=== PATIENT | male | born 2000 | race African-American/Black ===

== ENCOUNTER 2022-11-01 10:32 | Emergency (ER) | payer MEDICAID ==
[~2022-11-01] VITALS: Ht 177.8 cm; Wt 63.0 kg
[~2022-11-01 10:32] MED LIST: IBUP-2028 PO; T3 PO
[2022-11-01 10:59] VITALS: TEMP 97.5; O2SAT 100
[2022-11-01 13:05] VITALS: BP 133/79; PULSE 74; RESP 18
[2022-11-01] MEDS ORDERED: KETOROLAC 60MG/2ML VIAL IM STA (13:05)
[2022-11-01 14:44] LABS: CLARITY URINE CLEAR (CLEAR); COLOR URINE YELLOW (YELLOW); KETONES URINE NEGATIVE (NEGATIVE); LEUKOCYTE ESTERASE URINE NEGATIVE (NEGATIVE); NITRITE URINE NEGATIVE (NEGATIVE); OCCULT BLOOD URINE NEGATIVE (NEGATIVE); PH URINE 7.5 (4.5-8.0); PROTEIN URINE NEGATIVE (NEGATIVE); SPECIFIC GRAVITY URINE 1.013 (1.005-1.030); UROBILINOGEN URINE 0.2 E.U./dL (0.2-1.0)
[2022-11-01] MEDS ORDERED: NAPR-681 PO (14:52)
[2022-11-01] MEDS ORDERED: GABA-532 PO (14:52)
== END 2022-11-01 15:09 | disposition home or self-care (01) ==
LOC: ER 10:32
DX: M41.9 Scoliosis, unspecified (principal)
CPT/HCPCS: 99283; 81003; 96372; J1885